=== PATIENT | female | born 2000 | race Caucasian/White ===

== ENCOUNTER 2021-12-10 15:01 | Emergency (ER) | payer OTHER ==
[~2021-12-10] VITALS: Ht 152.4 cm; Wt 62.3 kg
[2021-12-10 18:47] VITALS: BP 98/55
== END 2021-12-10 18:47 | disposition home or self-care (01) ==
LOC: M ED 15:01
DX: M79.662 Pain in left lower leg (principal); F12.10 Cannabis abuse, uncomplicated